=== PATIENT | female | born 1965 | race Caucasian/White ===

== ENCOUNTER 2025-02-01 01:51 | Emergency (ER) | payer OTHER ==
[2025-02-01] MEDS: ONDANSETRON 4 MG/2 ML VIAL IVP STA (02:34)
[2025-02-01] MEDS: SODIUM CHLORIDE 0.9% 1,000 ML IV STA (02:39)
[2025-02-01] MEDS: MORPHINE SULFATE 4 MG/ML SYRINGE IVP STA (02:40)
[2025-02-01 02:44] LABS: Basophils # (A) 0.06 10*3/uL (0.00-0.10); Basophils % (A) 0.5 %; Eosinophils # (A) 0.04 10*3/uL (0.04-0.35); Eosinophils % (A) 0.3 %; HCT 38.8 % (37.2-46.3); HGB 13.5 g/dL (12.0-15.0); Lymphocytes # (A) 1.55 10*3/uL (0.90-5.00); MCH 30.8 pg (27.0-32.0); MCHC 34.8 g/dL (32.0-37.0); MCV 88.4 fL (80.0-97.0); Mean Platelet Volume 9.9 fL (9.5-12.2); Monocytes # (A) 0.54 10*3/uL (0.20-1.00); Monocytes % (A) 4.5 %; Neutrophils # (A) 9.66 10*3/uL (1.80-7.70); Neutrophils % (A) 81.3 %; Platelet Count 390 10*3/uL (140-440); RBC 4.39 10*6/uL (4.10-5.20); RDW 12.9 % (11.5-14.5)
[2025-02-01 02:50] LABS: ALT 448 U/L (4-34); African American GFR (CKD) 73 (>60 ml/min/1.73 sqM); Alkaline Phosphatase 160 U/L (38-126); Anion Gap 6 mmol/L; Blood Urea Nitrogen 21 mg/dL (7-17); Calcium 9.7 mg/dL (8.4-10.2); Carbon Dioxide 32 mmol/L (22-30); Chloride 100 mmol/L (98-107); Glucose 214 mg/dL (74-99); Non-African American GFR(CKD) 63 (>60 ml/min/1.73 sqM); Potassium 3.6 mmol/L (3.5-5.1); Sodium 138 mmol/L (137-145); Total Bilirubin 1.2 mg/dL (0.2-1.3); Total Protein 6.6 g/dL (6.3-8.2)
[2025-02-01 02:57] LABS: AST 834 U/L (14-36)
[2025-02-01 03:17] LABS: Appearance,Urine Clear (Clear); Bilirubin,Urine Negative (Negative); Blood,Urine Negative (Negative); Color,Urine Light Yellow; Glucose,Urine (UA) 1+ (Negative); Ketones,Urine Negative (Negative); Leukocyte Esterase,Urine Negative (Negative); Nitrite,Urine Negative (Negative); PH, Urine 8.5 (5.0-8.0); Protein,Urine Negative (Negative); Specific Gravity,Urine 1.008 (1.001-1.035); Urobilinogen,Urine <2.0 mg/dL (<2.0)
[2025-02-01 03:23] LABS: Influenza A Not Detected (Not Detectd); Influenza B Not Detected (Not Detectd); RSV Not Detected (Not Detectd)
[2025-02-01 03:26] VITALS: RESP 18
[2025-02-01 03:50] LABS: Lipase >20000 U/L (23-300)
[2025-02-01 04:21] LABS: Amylase 3152 U/L (30-110)
[2025-02-01] MEDS: LACTATED RINGERS 1,000 ML IV SCH ×2 (04:40→06:26)
[2025-02-01] MEDS: cefTRIAXone IN SWFI 1,000 MG/10 ML SYRINGE IVP STA (05:00)
[2025-02-01] MEDS: metroNIDAZOLE-NS PMX 500 MG in SALINE 1 100ML.BAG IVPB STA (05:05)
--- NOTE | 2025-02-01 05:09 | ED ---
General Adult HPI - General Source: patient, EMS Mode of arrival: ambulatory Limitations: no limitations <Matias Powers - Last Filed: 02/01/25 05:06> <Ledy Palafox - Last Filed: 02/01/25 06:40> - General Chief complaint: Nausea/Vomiting/Diarrhea Stated complaint: nausea and vomiting Time Seen by Provider: 02/01/25 02:17 - History of Present Illness Initial comments: 59-year-old female presenting with chief complaint of epigastric pain and vomiting. Symptoms started today. No hematemesis, hematochezia, or melena. No fever or chills. No cough, congestion, sore throat. She does have some pain radiating into the right shoulder. This is very sharp in nature and worsens with a deep breath. No shortness of breath. No other chest pain. (Matias Powers) - Related Data Allergies Allergy/AdvReac Type Severity Reaction Status Date / Time Corticosteroids Allergy Unknown Verified 02/01/25 01:58 (Glucocorticoids) Review of Systems ROS Other: All systems not noted in ROS Statement are negative. <Matias Powers - Last Filed: 02/01/25 05:06> ROS Other: All systems not noted in ROS Statement are negative. <Ledy Palafox - Last Filed: 02/01/25 06:40> ROS Statement: Those systems with pertinent positive or pertinent negative responses have been documented in the HPI. Past Medical History Past Medical History: Cancer, Hyperlipidemia, Hypertension History of Any Multi-Drug Resistant Organisms: None Reported Past Surgical History: Hysterectomy Additional Past Surgical History / Comment(s): Hysterectomy 1997 -from cancer Past Psychological History: No Psychological Hx Reported Smoking Status: Former smoker Past Alcohol Use History: Occasional Past Drug Use History: Marijuana <Matias Powers - Last Filed: 02/01/25 05:06> General Exam Limitations: no limitations General appearance: alert, in no apparent distress Head exam: Present: atraumatic, normocephalic, normal inspection Eye exam: Present: normal appearance, EOMI Neck exam: Present: normal inspection. Absent: meningismus Respiratory exam: Present: normal lung sounds bilaterally. Absent: respiratory distress, wheezes, rales, rhonchi, stridor Cardiovascular Exam: Present: regular rate, normal rhythm, normal heart sounds. Absent: systolic murmur, diastolic murmur, rubs, gallop, clicks GI/Abdominal exam: Present: soft. Absent: distended, tenderness, guarding, rebound, rigid Neurological exam: Present: alert, oriented X3 Psychiatric exam: Present: normal affect, normal mood Skin exam: Present: warm, dry, normal color <Matias Powers - Last Filed: 02/01/25 05:06> Course Vital Signs 02/01/25 02/01/25 02/01/25 01:59 03:25 05:39 Temperature 98.3 F Pulse Rate 66 65 77 Respiratory 20 18 18 Rate Blood Pressure 172/92 162/96 152/97 O2 Sat by Pulse 100 97 93 L Oximetry 02/01/25 02/01/25 05:43 06:09 Temperature 98.0 F Pulse Rate 72 Respiratory Rate Blood Pressure O2 Sat by Pulse 97 Oximetry Medical Decision Making - Lab Data Result diagrams: 02/01/25 02:00 02/01/25 02:27 <Matias Powers - Last Filed: 02/01/25 05:06> - Lab Data Result diagrams: 02/01/25 02:00 02/01/25 02:27 <Ledy Palafox - Last Filed: 02/01/25 06:40> - Medical Decision Making 59-year-old female presenting with chief complaint of epigastric pain nausea and vomiting that started today. History and physical examination are conducted. WBC 11.9. Amylase 3152 and lipase greater than 20,000. AST 134 ALT 448 alkaline phosphatase 160. Bilirubin is normal at 1.2. Patient received 3 L fluid bolus and maintenance fluids of lactated Ringer's. Provided with antiemetics and pain medication. CT is obtained, final report is pending but on preliminary reading, bile duct appears dilated. Highly likely that the patient will need gastroenterology. We do not currently have GI on-call. If patient requires transfer she is requesting [facility]. Patient is signed out to my attending Dr. Palafox for further management and disposition (Matias Powers) Was patient admitted / discharged? Hospital course, mention meds given and route, prescriptions, significant lab abnormalities, going to OR and other pertinent info. @ -Transfer to [facility] was discussed with and signed out to myself by Mary MALIK. Briefly she is a 59-year-old female presenting today fo r 1 day of nausea vomiting and epigastric abdominal pain. Here her LFTs, lipase and amylase are severely elevated. No ultrasound here overnight so ultrasound was unable to be obtained however on review of CT scan, CBD appears dilated with inflammation of the gallbladder concerning for early ascending cholangitis. Ordered shari Thomas. Patient will require GI consult. She did initially request [facility] however they do not have advanced GI at [facility] so [facility] physician recommended transfer to [facility]. I discussed this with the patient and she states at this point she would prefer to go to [facility]. Case discussed with Dr. Fuentes, GI, [facility], kindly accepts pt for transfer. Likely will need MRCP. Updated pt to findings and plan of care, she is agreeable with transfer. CT scan ultimately was read, after discussion with GI, stating there was no pericholecystic fluid or CBD dilation however noted liver mass concerning for neoplasm & pancreatitis. Patient will need follow-up MRI and or three-phase contrast CT of the liver for further evaluation. Patient will still be transferred as I feel she would still benefit from GI consult to further assess this mass and reason for significantly elevated LFTs and pancreatitis in setting of new liver mass. We updated to these findings prior to transfer Undiagnosed new problem with uncertain prognosis? @ -No Drug Therapy requiring intensive monitoring for toxicity (Heparin, Nitro, Insulin, Cardizem)? @ -No Were any procedures done? @ -No Diagnosis/symptom? @Ascending cholangitis Acute, or Chronic, or Acute on Chronic? @ -Acute Uncomplicated (without systemic symptoms) or Complicated (systemic symptoms)? Complicated Side effects of treatment? @ -No Exacerbation, Progression, or Severe Exacerbation? @ -No Poses a threat to life or bodily function? How? (Chest pain, USA, AR, pneumonia, PE, COPD, DKA, ARF, appy, cholecystitis, CVA, Diverticulitis, Homicidal, Suicidal, threat to staff... and all critical care pts) Yes, if left untreated could lead to sepsis, septic shock and (Ledy Palafox) - Lab Data Lab Results 02/01/25 02/01/25 02/01/25 Range/Units 02:00 02:27 02:27 WBC 11.90 H (4.50-10.00) 10*3/uL RBC 4.39 (4.10-5.20) 10*6/uL Hgb 13.5 (12.0-15.0) g/dL Hct 38.8 (37.2-46.3) % MCV 88.4 (80.0-97.0) fL MCH 30.8 (27.0-32.0) pg MCHC 34.8 (32.0-37.0) g/dL Plt Count 390 (140-440) 10*3/uL MPV 9.9 (9.5-12.2) fL Immature Gran % (Auto) 0.4 % Neutrophils % 81.3 % Lymphocytes % 13.0 % Monocytes % 4.5 % Eosinophils % 0.3 % Basophils % 0.5 % Immature Gran # 0.05 H (0.00-0.04) 10*3/uL Neutrophils # 9.66 H (1.80-7.70) 10*3/uL Lymphocytes # 1.55 (0.90-5.00) 10*3/uL Monocytes # 0.54 (0.20-1.00) 10*3/uL Eosinophils # 0.04 (0.04-0.35) 10*3/uL Basophils # 0.06 (0.00-0.10) 10*3/uL Sodium 138 (137-145) mmol/L Potassium 3.6 (3.5-5.1) mmol/L Chloride 100 (98-107) mmol/L Carbon Dioxide 32 H (22-30) mmol/L Anion Gap 6 mmol/L BUN 21 H (7-17) mg/dL Creatinine 1.00 (0.52-1.04) mg/dL Est GFR (CKD-EPI)AfAm 73 (>60 ml/min/1.73 sqM) Est GFR (CKD-EPI)NonAf 63 (>60 ml/min/1.73 sqM) Glucose 214 H (74-99) mg/dL Calcium 9.7 (8.4-10.2) mg/dL Total Bilirubin 1.2 (0.2-1.3) mg/dL AST 834 H (14-36) U/L ALT 448 H (4-34) U/L Alkaline Phosphatase 160 H (38-126) U/L Troponin I <0.012 (0.000-0.034) ng/mL Total Protein 6.6 (6.3-8.2) g/dL Albumin 4.0 (3.5-5.0) g/dL Amylase 3152 H* (30-110) U/L Lipase >78185 H (23-300) U/L Urine Color Urine Appearance (Clear) Urine pH (5.0-8.0) Ur Specific [place] (1.001-1.035) Urine Protein (Negative) Urine Glucose (UA) (Negative) Urine Ketones (Negative) Urine Blood (Negative) Urine Nitrite (Negative) Urine Bilirubin (Negative) Urine Urobilinogen (<2.0) mg/dL Ur Leukocyte Esterase (Negative) Influenza Type A (PCR) (Not Detectd) Influenza Type B (PCR) (Not Detectd) RSV (PCR) (Not Detectd) SARS-CoV-2 (PCR) (Not Detectd) 02/01/25 02/01/25 Range/Units 02:30 03:10 WBC (4.50-10.00) 10*3/uL RBC (4.10-5.20) 10*6/uL Hgb (12.0-15.0) g/dL Hct (37.2-46.3) % MCV (80.0-97.0) fL MCH (27.0-32.0) pg MCHC (32.0-37.0) g/dL Plt Count (140-440) 10*3/uL MPV (9.5-12.2) fL Immature Gran % (Auto) % Neutrophils % % Lymphocytes % % Monocytes % % Eosinophils % % Basophils % % Immature Gran # (0.00-0.04) 10*3/uL Neutrophils # (1.80-7.70) 10*3/uL Lymphocytes # (0.90-5.00) 10*3/uL Monocytes # (0.20-1.00) 10*3/uL Eosinophils # (0.04-0.35) 10*3/uL Basophils # (0.00-0.10) 10*3/uL Sodium (137-145) mmol/L Potassium (3.5-5.1) mmol/L Chloride (98-107) mmol/L Carbon Dioxide (22-30) mmol/L Anion Gap mmol/L BUN (7-17) mg/dL Creatinine (0.52-1.04) mg/dL Est GFR (CKD-EPI)AfAm (>60 ml/min/1.73 sqM) Est GFR (CKD-EPI)NonAf (>60 ml/min/1.73 sqM) Glucose (74-99) mg/dL Calcium (8.4-10.2) mg/dL Total Bilirubin (0.2-1.3) mg/dL AST (14-36) U/L ALT (4-34) U/L Alkaline Phosphatase (38-126) U/L Troponin I (0.000-0.034) ng/mL Total Protein (6.3-8.2) g/dL Albumin (3.5-5.0) g/dL Amylase (30-110) U/L Lipase (23-300) U/L Urine Color Light Yellow Urine Appearance Clear (Clear) Urine pH 8.5 H (5.0-8.0) Ur Specific [place] 1.008 (1.001-1.035) Urine Protein Negative (Negative) Urine Glucose (UA) 1+ H (Negative) Urine Ketones Negative (Negative) Urine Blood Negative (Negative) Urine Nitrite Negative (Negative) Urine Bilirubin Negative (Negative) Urine Urobilinogen <2.0 (<2.0) mg/dL Ur Leukocyte Esterase Negative (Negative) Influenza Type A (PCR) Not Detected (Not Detectd) Influenza Type B (PCR) Not Detected (Not Detectd) RSV (PCR) Not Detected (Not Detectd) SARS-CoV-2 (PCR) Not Detected (Not Detectd) Disposition <Matias Powers - Last Filed: 02/01/25 05:06> - Out of Hospital Transfer - Req. Specs Out of Hospital Transfer - Requested Specifics: Other Emergency Center ([facility]) <Ledy Palafox - Last Filed: 02/01/25 06:40> Clinical Impression: Liver mass, Acute pancreatitis Disposition: OTHER INSTITUTION NOT DEFINED Condition: Good Referrals: Humberto Alexander MD [Primary Care Provider] - 1-2 days
[2025-02-01] MEDS: MORPHINE SULFATE 4 MG/ML SYRINGE IVP PRN (05:34)
[2025-02-01 06:09] VITALS: TEMP 98
--- NOTE | 2025-02-01 06:33 | CT ---
EXAMINATION TYPE: CT abdomen pelvis w con DATE OF EXAM: 02/01/2025 COMPARISON: None CLINICAL INDICATION: Female, 59 years old with history of epigastric pain; [facility], TECHNIQUE: Multiple axial images are obtained through the abdomen and pelvis following IV contrast administratio n. CT DLP: mGycm CT CTDI: mGy Automated exposure control for dose reduction was used. FINDINGS: There is mild interstitial scarring or atelectasis [place] without pericholecystic fluid but no gallbladder wall thickening or distention. There is no biliary ductal dilatation. There is a 3.1 cm ill-defined hypodensity in the right lobe of the liver with an enhancing nodule and further workup is warranted with CT liver with three-phase postcontrast imaging or MRI. Neoplasm is not excluded. There are inflammatory changes in the peripancreatic fat consistent with acute pancreatitis. There is no focal mass within the pancreas. The spleen and adrenal glands are normal. There is no solid renal mass or hydronephrosis and there is homogeneous contrast enhancement of the r enal parenchyma. The caliber the abdominal aorta is normal is no retroperitoneal adenopathy or hemorrhage. The bowel loops are normal in caliber and there is no evidence of dilatation or obstruction. No infla mmatory changes are identified in the bowel wall or mesentery. There is a small amount of free fluid adjacent to the liver. There is no free air. No pelvic mass, free fluid, abscess or adenopathy. There is surgical absence of uterus. The osseous structures and soft tissues are intact. IMPRESSION: 1. Acute pancreatitis without pseudocyst. 2. Minimal ascites. 3. liver mass as described above. Neoplasm is not excluded and further imaging is warranted as descri bed above. [facility], , 02/01/2025 6:31 AM
[2025-02-01 06:52] VITALS: BP 162/88; PULSE 76
== END 2025-02-01 06:51 | disposition other institution (70) ==
LOC: EC 01:51
DX: K85.90 Acute pancreatitis without necrosis or infection, unspecified (principal); R16.0 Hepatomegaly, not elsewhere classified; Z87.891 Personal history of nicotine dependence; Z88.8 Allergy status to other drugs, medicaments and biological substances
CPT/HCPCS: 99285; 96365; 96375 ×3; 96376; 96361; 36415; 93005; 80053; 82150; 83690; 84484; 85025; 81003; 87636; 74177; J2270; J2405; J0696; Q9967; J1836